=== PATIENT | male | born 1930 | race Caucasian/White ===

== ENCOUNTER 2016-10-29 18:50 | Emergency (ER) | payer MEDICARE, BC ==
[2016-10-29] MEDS ORDERED: ONDANSETRON HCL 4 MG/2 ML VIAL ONE (19:20)
[2016-10-29 19:55] LABS: BLOOD UREA NITROGEN 19 mg/dL (9-20); CALCIUM 10.3 mg/dL (8.4-10.2); CHLORIDE 100 mmol/L (98-107); CREATININE 0.8 mg/dL (0.7-1.3); GLUCOSE 98 mg/dL (70-100); SODIUM 136 mmol/L (137-145)
--- NOTE | 2016-10-29 21:26 | ER PHYSICIAN DOCUMENTATION ---
Physician Documentation [facility] Name:Sandro Garcia Age:86 yrs Sex:Male :1930 Arrival Date:10/29/2016 Time:18:50 Bed1 Private MD:Jorge L Baez EDivyTheodore Disposition: 10/29/16 20:30 Discharged to Home/Self Care. Impression: Vomiting - Dehydration. - Condition is Good. - Discharge Instructions: VOMITING (8y-Adult). - Prescriptions for Zofran 4 mg Oral Tablet - take 1-2 tablet by ORAL route every 4-6 hours As needed; 10 tablet. - Medical Reconciliation form form. - Follow up: Jorge L Baez MD; When: 4- 6 days; Reason: Continuance of care. - Problem is new. - Symptoms have improved. HPI: 10/29 21:36 This 86 yrs old Male presents to ER via Wheelchair with complaints of jm Nausea/Vomiting. 21:36 The patient presents to the emergency department with nausea, with vomiting, without jm any complaints of abdominal pain. Onset: The symptom(s)/episode began/occurred today. Possible causes: unknown. Severity of symptoms: in the emergency department the symptoms are unchanged. The patient has not experienced similar symptoms in the past. Historical: - Allergies: Levaquin; Indocin; - Home Meds: 1. Aspirin Oral 2. buproprion 3. Lisinopril Oral 4. Plavix Oral 5. Ranitidine Oral 6. atorvastatin oral 7. Carbidopa-Levodopa Oral - PMHx: CAD; PARKINSONS; hyperlipidemia; - PSHx: Hip surgery; stents; SHOULDER SURGERY; - Tetanus: < 10 years. - Ebola Screening: : Patient negative for fever greater than or equal to 101.5 degrees Fahrenheit, and additional compatible Ebola Virus Disease symptoms. Patient denies exposure to infectious person. Patient denies travel to an Ebola-affected area in the 21 days before illness onset. No symptoms or risks identified at this time. . - Immunization history: Pneumococcal vaccine is up to date, Flu Vaccine < 1 year. - Social history: Smoking status: Patient states was never smoker of tobacco. Patient/guardian denies using alcohol. ROS: 21:36 Constitutional: Negative for fatigue, fever. jm 21:36 Abdomen/GI: Positive for nausea, vomiting, Negative for abdominal pain, diarrhea, abdominal cramps. 21:36 Neuro: Positive for weakness, Negative for dizziness, near syncope. Exam: 21:36 Constitutional: The patient appears alert, awake. 21:36 Cardiovascular: Rate: normal, Rhythm: regular. 21:36 Abdomen/GI: Bowel sounds: normal, Palpation: abdomen is soft and non-tender. Vital Signs: 19:08 BP 158 / 89; Pulse 72; Resp 15; Temp 97.8; Pulse Ox 96% on R/A; Weight 64.86 kg; Height lb 5 ft. 9 in. (175.26 cm); Pain 0/10; 21:25 BP 131 / 78; Pulse 80; Resp 14; Pain 0/10; lb 19:08 Body Mass Index 21.12 (64.86 kg, 175.26 cm) lb MDM: 19:00 Differential diagnosis: viral gastroenteritis, gastroenteritis. Data reviewed: vital jm signs, nurses notes, old medical records, lab test result(s), and as a result, I will discharge patient. Counseling: I had a detailed discussion with the patient and/or guardian regarding: the historical points, exam findings, and any diagnostic results supporting the discharge/admit diagnosis. Response to treatment: the patient's symptoms have resolved after treatment. ED course: Pt MUCH better after 2LNS and zofran. . 19:35 Patient medically screened. 10/29 19:56 Order name: BASIC METABOLIC PANEL; Complete Time: 20:03 EDOH 10/29 19:24 Order name: Iv Saline Lock; Complete Time: 19:24 lb Dispensed Medications: Completed: NS 0.9% 1000 ml IV at bolus once 19:24 Drug: NS 0.9% 1000 ml; Route: IV; Rate: bolus; Site: right forearm; lb 19:24 Drug: Zofran 4 mg; Route: IVP; Infused Over: 2 mins; Site: right forearm; lb 19:53 Follow up: Response: Nausea is decreased lb 19:53 CANCELLED (Duplicate Order): Zofran 4 mg IVP once over 2 mins lb 20:16 Drug: NS 0.9% 1000 ml; Route: IV; Rate: bolus; Site: right forearm; lb 20:16 Drug: NS 0.9% 1000 ml; Route: IV; Rate: bolus; Site: right forearm; lb 21:27 Follow up: IV Status: Completed infusion lb 21:24 Drug: Zofran 1 tablet; Route: PO; lb 21:24 Follow up: Response: Pharmacy closed - take home med pack lb Signatures: Theodore Quinones MD MD jm Bollock, Lynda lb
--- NOTE | 2016-10-29 21:26 | ER NURSING DOCUMENTATION ---
Nurse's Notes [facility] Name:Sandro Garcia Age:86 yrs Sex:Male :1930 Arrival Date:10/29/2016 Time:18:50 Bed1 Private MD:Jorge L Baez Diagnosis:Vomiting - Dehydration Presentation: 10/29 19:02 Presenting complaint: Patient states: nausea since yesterday, today vomited x 4. denies lb fever or diarrhea, denies pain. Transition of care: Home. Notified ED Physician of Joni Walsh notified. Care prior to arrival: None. 19:02 Acuity: PIPPA 3 lb 19:02 Method Of Arrival: Wheelchair lb Triage Assessment: 19:07 General: Appears uncomfortable, Behavior is appropriate for age, cooperative, pleasant. lb Pain: Denies pain. GI: Reports nausea, vomiting, since yesterday. Historical: - Allergies: Levaquin; Indocin; - Home Meds: 1. Aspirin Oral 2. buproprion 3. Lisinopril Oral 4. Plavix Oral 5. Ranitidine Oral 6. atorvastatin oral 7. Carbidopa-Levodopa Oral - PMHx: CAD; PARKINSONS; hyperlipidemia; - PSHx: Hip surgery; stents; SHOULDER SURGERY; - Tetanus: < 10 years. - Ebola Screening: : Patient negative for fever greater than or equal to 101.5 degrees Fahrenheit, and additional compatible Ebola Virus Disease symptoms. Patient denies exposure to infectious person. Patient denies travel to an Ebola-affected area in the 21 days before illness onset. No symptoms or risks identified at this time. . - Immunization history: Pneumococcal vaccine is up to date, Flu Vaccine < 1 year. - Social history: Smoking status: Patient states was never smoker of tobacco. Patient/guardian denies using alcohol. Screenin:09 Infectious Disease Risk None. Abuse screen: Denies threats or abuse. Denies injuries lb from another. Nutritional screening: No deficits noted. Assessment: 19:09 See Triage Assessment done by same RN. GI: Abdomen is flat, non- distended Bowel sounds lb present X 4 quads. Vital Signs: 19:08 BP 158 / 89; Pulse 72; Resp 15; Temp 97.8; Pulse Ox 96% on R/A; Weight 64.86 kg; Height lb 5 ft. 9 in. (175.26 cm); Pain 0/10; 21:25 BP 131 / 78; Pulse 80; Resp 14; Pain 0/10; lb 19:08 Body Mass Index 21.12 (64.86 kg, 175.26 cm) lb ED Course: 18:52 Patient arrived in ED. ma1 18:52 Jorge L Baez MD is Private Physician. ma1 19:02 Kaitlynn Billings is Primary Nurse. lb 19:03 Triage completed. lb 19:09 Valuables Remains with patient Patient has correct armband on for positive lb identification. Placed in gown. Bed in low position. Side rails up X 1. 19:20 Theodore Quinones MD is Attending Physician. 19:24 Inserted peripheral IV: 22 gauge in right forearm and blood collected. lb 20:29 Jorge L Baez MD is Referral Physician. Administered Medications: Completed: NS 0.9% 1000 ml IV at bolus once 19:24 Drug: NS 0.9% 1000 ml; Route: IV; Rate: bolus; Site: right forearm; lb 19:24 Drug: Zofran 4 mg; Route: IVP; Infused Over: 2 mins; Site: right forearm; lb 19:53 Follow up: Response: Nausea is decreased lb 19:53 CANCELLED (Duplicate Order): Zofran 4 mg IVP once over 2 mins lb 20:16 Drug: NS 0.9% 1000 ml; Route: IV; Rate: bolus; Site: right forearm; lb 20:16 Drug: NS 0.9% 1000 ml; Route: IV; Rate: bolus; Site: right forearm; lb 21:27 Follow up: IV Status: Completed infusion lb 21:24 Drug: Zofran 1 tablet; Route: PO; lb 21:24 Follow up: Response: Pharmacy closed - take home med pack lb Intake: 21:25 IV: 1800ml (NS); Total: 1800ml. lb Outcome: 20:30 Discharge ordered by . ade 21:25 Discharged to home ambulatory. lb 21:25 Condition: stable 21:25 Discharge Assessment: Patient awake, alert and oriented x 3. No cognitive and/or functional deficits noted. Patient verbalized understanding of disposition instructions. 21:25 Instructed on discharge instructions, follow up and referral plans. 21:25 IV D/Vitaly 21:26 Patient left the ED. lb 10/30 09:12 Discharge F/U Call: Unable to reach: no answer st Signatures: Ct Del Valle, RN Theodore Junior MD MD jm Bollock, Lynda lb Addison, Melissa ma1
[2016-10-29] MEDS ORDERED: ONDANSETRON ODT PREPAC 4 MG TAB.RAPDIS PO ONE (21:28)
== END 2016-10-29 21:26 | disposition home or self-care (01) ==
LOC: ER 18:50
DX: E86.0 Dehydration (principal); R11.2 Nausea with vomiting, unspecified; R53.1 Weakness; I25.10 Atherosclerotic heart disease of native coronary artery without angina pectoris; G20 Parkinson's disease; Z79.899 Other long term (current) drug therapy; Z79.82 Long term (current) use of aspirin
CPT/HCPCS: 80048; 96361; 96374; 99283; J2405

== ENCOUNTER 2016-12-25 08:04 | Day surgery (SDC) | payer MEDICARE ==
[2016-12-25] MEDS ORDERED: METHYLPREDNISOLONE ACETATE 40 MG/ML VIAL ONE (08:27)
[2016-12-25] MEDS ORDERED: IOHEXOL 240 MG/ML 50 ML VIAL IV ONE (08:27)
[2016-12-25] MEDS ORDERED: BUPIVACAINE HCL/PF 0.25% 30 ML VIAL ONE ×2 (08:28)
[2016-12-25] MEDS ORDERED: NORMAL SALINE FLUSH 10 ML ONE (08:55)
--- NOTE | 2016-12-25 15:32 | PROCEDURE NOTE ---
DATE OF PROCEDURE: 12/25/16 SURGEON: David Narayanan MD INDICATION FOR PROCEDURE: Patient is an 86-year-old male with chronic lumbosacral pain, spinal stenosis and degenerative disk disease, here for a caudal epidural steroid injection today. PROCEDURE PERFORMED: Caudal epidural steroid injection. No sedation was used. SUMMARY: Prior to proceeding, history and physical was performed in an informed consent was obtained after his questions were answered. An IV buff cap was placed for precaution. He was brought to the procedure room and placed in the prone position where the lumbosacral spine was prepped and draped in the usual sterile fashion. The sacral cornua was identified and the overlying skin anesthetized with 1% Lidocaine. Next a 22-gauge 3-1/2 inch spinal needle was inserted into the sacral hiatus. This was confirmed under lateral fluoroscopic view. Then 1 mL of contrast dye was then injected indicating epidural placement. Next, an AP was taken to confirm epidural placement. After negative aspiration for blood or cerebrospinal fluid a total of 15 mL was injected containing 80 mg of Depo-Medrol, 3 mL of 0.25% Marcaine and 10 mL of sterile normal saline. He tolerated the procedure without any complications, and was discharged home with follow up. ELANA
== END 2016-12-25 09:30 | disposition home or self-care (01) ==
LOC: SDS 08:04
PROVIDERS: ATTEND Pain Medicine Pain Medicine
DX: M99.43 Connective tissue stenosis of neural canal of lumbar region (principal); I50.9 Heart failure, unspecified; I11.0 Hypertensive heart disease with heart failure; G89.29 Other chronic pain; Z79.899 Other long term (current) drug therapy
CPT/HCPCS: 76000; S0020

== ENCOUNTER 2017-01-13 05:19 | Emergency (ER) | payer MEDICARE ==
[2017-01-13 05:55] LABS: BASOPHIL# 0.1 X 10^3uL (0.0-0.1); BASOPHILS 0.7 % (0.0-2.0); EOSINOPHILS# 0.3 X 10^3uL (0.0-0.4); HEMATOCRIT 45.4 % (42.0-54.0); HEMOGLOBIN 15.3 g/dL (14.0-18.0); LYMPHOCYTES 9.7 % (20.0-40.0); LYMPHOCYTES# 1.2 X 10^3uL (0.8-3.8); MEAN CELL VOLUME 92.2 fL (80.0-100.0); MEAN CORPUS. HGB CONCENTRATION 33.7 g/dL (32.0-36.0); MEAN PLATELET VOLUME 7.7 fL (7.4-10.4); MONOCYTES 12.2 % (2.0-10.0); MONOCYTES# 1.6 X 10^3uL (0.2-1.0); NEUTROPHILS 75.4 % (54.0-75.0); NEUTROPHILS# 9.5 X 10^3uL (2.6-6.7); PLATELET COUNT 306 X 10^3uL (130-440); RED BLOOD COUNT 4.93 X 10^6uL (4.20-6.10); WHITE BLOOD COUNT 12.7 X 10^3uL (3.9-10.7)
[2017-01-13 05:59] LABS: BLOOD UREA NITROGEN 23 mg/dL (9-20); CALCIUM 9.4 mg/dL (8.4-10.2); CHLORIDE 104 mmol/L (98-107); CREATININE 0.9 mg/dL (0.7-1.3); GLUCOSE 104 mg/dL (70-100); POTASSIUM 3.9 mmol/L (3.5-5.1); SODIUM 141 mmol/L (137-145)
[2017-01-13] MEDS ORDERED: NITROGLYCERIN 0.4 MG TAB.SUBL SUBLINGUAL ONE (06:06)
[2017-01-13] MEDS ORDERED: ONDANSETRON HCL 4 MG/2 ML VIAL ONE (06:07)
[2017-01-13] MEDS ORDERED: MORPHINE SULFATE 4 MG/ML SYR ONE (06:07)
[2017-01-13 06:25] LABS: TROPONIN I < 0.012 ng/mL (0.00-0.034)
[2017-01-13] MEDS ORDERED: MORPHINE SULFATE 2 MG/ML SYR ONE (08:48)
--- NOTE | 2017-01-13 09:49 | CT REPORT ---
HISTORY: Chest pain and elevated d-dimer. COMPARISON: None. TECHNIQUE: This examination was performed using automated exposure control, adjustment of mA or kV according to patient size, and/or use of iterative reconstruction technique. Axial CT imaging from the thoracic i nlet through the upper abdomen following administration of IV contrast during peak opacification of t he pulmonary arteries, multiplanar reformatted and 3-D images are evaluated. 100cc Isovue 300 contrast. FINDINGS: Contrast injection is satisfactory for evaluation of the segmental pulmonary arteries. No filling def ect is evident. The main pulmonary artery is normal in size. Subcentimeter hypoattenuating nodules are incidentally noted within the thyroid bilaterally. Mild subsegmental atelectasis in the lower lobes is evident bilaterally. A 2 mm calcified nodule with in the superior segment of the left lower lobe is present. Triangular 4 mm nodule within the right ob lique fissure likely represents a lymph node. Patchy nonconsolidative opacities within the left lower lobe are favored to represent atelectasis. Tiny locules of gas within the left costophrenic sulcus are noted. These are best illustrated on sagi ttal image 37). Cardiac structures and great vessels are unremarkable. There is no pathologic mediastinal or hilar ad enopathy. There is no focal bone lesion. Limited evaluation of the upper abdomen demonstrates no acute abnormality. There is incidentally note d 10 mm hypoattenuating nodule within segment 4 of the liver. Descending aorta, aortic arch, descending thoracic aorta widely patent, visualized portions of the in nominate artery, left and right subclavian, left and right vertebral, and left and right common carot id arteries patent, no aneurysm, dissection, or flow limiting stenosis. IMPRESSION: 1. Negative evaluation for acute pulmonary embolism. 2. Left basilar opacities representing atelectasis versus infiltrate. 3. Tiny gas locules within the left costophrenic sulcus may represent trace pneumothorax versus subpl eural blebs. 4. Hypoattenuating nodules in the thyroid bilaterally. Dedicated thyroid ultrasound is recommended. Results were discussed with Dr. Calvo via phone on 01/13/2017 9:[address] Pfeiffer. Final Electronic Signature: This report was electronically signed by Nadeem Pfeiffer MD on 01/13/2017 9:4 7 AM. dwells /
[2017-01-13] MEDS ORDERED: KETOROLAC TROMETHAMINE 30 MG/ML VIAL ONE (10:15)
--- NOTE | 2017-01-13 11:05 | ER NURSING DOCUMENTATION ---
Nurse's Notes [facility] Name:Sandro Garcia Age:86 yrs Sex:Male :1930 Arrival Date:01/13/2017 Time:05:19 BedTrauma-C Private MD:Jorge L Baez Diagnosis:Pleurisy Presentation: 01/13 05:22 Acuity: PIPPA 2 rh 05:38 Presenting complaint: Patient states: Pt states he woke up with "shoulder pain" that rh feels like pain when he had his stent placed. Pt states it is constant and located on the left lateral chest, pain is reproducible to touch as well. pt denies nausea, dizziness and SOB. Transition of care: Home. 05:38 Method Of Arrival: Private Vehicle Triage Assessment: 05:39 General: Appears in no apparent distress, Behavior is cooperative. Pain: Complains of rh pain in anterior aspect of left upper chest Pain began 2 hours ago Is continuous Aggravated by Deep inspiration. EENT: Oral mucosa is dry. Neuro: Level of Consciousness is awake, alert, obeys commands, Oriented to person, place, time, event. Cardiovascular: Capillary refill < 3 seconds Chest pain is located in left anterior chest wall. Respiratory: Airway is patent Respiratory effort is even, unlabored, Respiratory pattern is regular, symmetrical, Denies shortness of breath. GI: Abdomen is non- distended Denies diarrhea, nausea, vomiting. : No deficits noted. Derm: Skin is intact, is fragile, Skin is pink, warm & dry. Historical: - Allergies: Celexa; Gemfibrozil; Levaquin; baycol; Indocin; - Home Meds: 1. atorvastatin 40 mg oral tab 1 tab once daily 2. Zofran 4 mg oral tab 1 tab every 12 hours 3. Miralax 17 gram oral pwpk 1 packet once daily 4. Metamucil Smooth Texture oral pack 5. acetaminophen 500 mg oral cap 2 caps DAILY 6. aspirin 81 mg oral tab 1 tab once daily 7. docusate sodium 100 mg oral cap 1 cap once daily 8. fentanyl 12 mcg/hr transdermal pt72 1 patch every 72 hours 9. ranitidine HCl 150 mg oral cap 1 cap once daily at bedtime 10. Tramadol Oral 11. carbidopa-levodopa 25-100 mg oral tab 1 tab Daily 12. lisinopril 10 mg oral tab 1 tab once daily 13. bupropion HCl 100 mg oral tab 1 tab 2 times per day 14. clopidogrel 75 mg oral tab 1 tab once daily - PMHx: PARKINSONS; CHRONIC NAUSEA; BPH; GOUT; CHRONIC PAIN; CONSTIPATION; IBS; PUD; ESOHAGEAL STENOSIS; GERD; CAD; Hypertension; TIA; DEPRESSION; DEMENTIA; HYPERLIPIDEMIA; LYME DISEASE ; - PSHx: HIP SURGERY; Knee surgery; TURP; LIH; - Tetanus: < 10 years. - Ebola Screening: : Patient negative for fever greater than or equal to 101.5 degrees Fahrenheit, and additional compatible Ebola Virus Disease symptoms. - Immunization history: Pneumococcal vaccine is up to date, Flu Vaccine < 1 year. - Social history: Smoking status: Patient states was never smoker of tobacco. Screenin:37 Infectious Disease Risk None. Abuse screen: Denies threats or abuse. Denies injuries rh from another. Nutritional screening: No deficits noted. Assessment: 05:41 See Triage Assessment done by same RN. rh 09:04 General: Appears in no apparent distress, Behavior is appropriate for age. Pain: lp Complains of pain in left clavicle, anterior aspect of left upper chest and left breast Pain does not radiate. Pain currently is 5 out of 10 on a pain scale. Quality of pain is described as sharp, Alleviated by medications, rest, Aggravated by inspiration. Neuro: Level of Consciousness is awake, alert, Oriented to person, place, time, event. EENT: No deficits noted. very [place]. Cardiovascular: Heart tones S1 S2. Respiratory: Breath sounds are clear bilaterally. GI: Bowel sounds present X 4 quads. : No deficits noted. Derm: No deficits noted. Vital Signs: 05:30 BP 160 / 106; Pulse 75; Resp 19; Temp 98.5(TE); Pulse Ox 95% on R/A; rh 06:00 BP 150 / 96; Pulse 82; Resp 20; Pulse Ox 96% on 2 lpm NC; Pain 7/10; rh 06:31 BP 120 / 89; Pulse 79; Resp 18; Pulse Ox 95% on 2 lpm NC; rh 06:45 BP 130 / 85; Pulse 76; Resp 16; Pulse Ox 93% on 2 lpm NC; lp 07:45 BP 145 / 95 (auto/); Pulse Ox R/A; lp 07:49 Pulse 72 MON; Resp 29; Pulse Ox 98% on R/A; lp 08:00 BP 151 / 106 (auto/); Pulse Ox R/A; lp 08:04 Pulse 77 MON; Resp 23; Pulse Ox R/A; lp 08:15 BP 154 / 97 (auto/); Pulse Ox R/A; lp 08:19 Pulse 77 MON; Resp 24; Pulse Ox R/A; lp 08:30 BP 149 / 98 (auto/); Pulse Ox R/A; lp 08:34 Pulse 76 MON; Resp 32; Pulse Ox R/A; lp 08:41 Pain 8/10; lp 09:07 Pain 5/10; lp 09:37 BP 149 / 93 (auto/); lp 09:44 Pulse 73 MON; Resp 28; Pulse Ox 97% ; lp 10:05 Pain 5/10; lp 10:43 BP 139 / 90; Pulse 72; Resp 16; Pulse Ox 92% on R/A; lp 08:41 Order for Morphine recieved lp 09:07 pain improved lp ED Course: 05:20 Patient arrived in ED. em2 05:21 Jorge L Baez MD is Private Physician. em2 05:22 Aisha Barahona is Primary Nurse. rh 05:22 Triage completed. rh 05:25 truck washer on. Pulse ox on. NIBP on. rh 05:25 Notified ED Physician of patient's arrival and chief complaint. Dr. Calvo notified. rh 05:28 EKG done. (by ED staff). Reviewed by Zhen Calvo MD. rh 05:30 Inserted peripheral IV: 20 gauge in right antecubital area and blood collected. rh 05:35 Port Xray Completed. ms 05:37 Valuables Remains with patient Patient has correct armband on for positive rh identification. Placed in gown. Bed in low position. Call light in reach. Side rails up X 1. 05:49 Zhen Calvo MD is Attending Physician. tl1 06:00 Oxygen Oxygen administration via nasal cannula @ 2L/min. rh 07:12 EKG attached rh 07:13 Report given to ALAINA OLIVARES. rh 09:[address] ms 09:34 CAT SCAN; CHEST ANGIO [id number] Sent. ms 10:34 Jorge L Baez MD is Referral Physician. tl1 Administered Medications: 05:56 Drug: Aspirin 81 mg; Route: PO; rh 06:16 Follow up: Response: No adverse reaction rh 05:58 Drug: Zofran 4 mg; Route: IVP; Infused Over: 2 mins; Site: right antecubital; rh 06:16 Follow up: Response: Nausea is decreased rh 06:00 Drug: morphine 4 mg; Route: IVP; Site: right antecubital; rh 06:16 Follow up: Response: Pain is decreased rh 06:04 Drug: Nitroglycerin 0.4 mg; Route: Sublingual; rh 06:17 Follow up: Response: Blood pressure is lowered rh 08:41 Drug: morphine 2 mg; Route: IVP; Infused Over: 2 mins; Site: right antecubital; lp 09:06 Follow up: Response: Pain is decreased lp 10:07 Drug: ketorolac 15 mg; Route: IVP; Infused Over: 3 mins; Site: right antecubital; lp 11:00 Follow up: Response: Pain is decreased lp Outcome: 10:34 Discharge ordered by MD. oleary 11:04 Discharged to home ambulatory. lp 11:04 Condition: stable 11:04 Instructed on discharge instructions, follow up and referral plans. medication usage. 11:04 Patient left the ED. lp Signatures: Alaina Morton RN RN lp Strickland, Mary ms Meinking-reg, Ellen-reg 2 Zhen Calvo MD MD 1 Aisha Barahona
--- NOTE | 2017-01-13 11:05 | ER PHYSICIAN DOCUMENTATION ---
Physician Documentation [facility] Name:Sandro Garcia Age:86 yrs Sex:Male :1930 Arrival Date:01/13/2017 Time:05:19 BedTrauma-C Private MD:oJrge L Baez EDjoviZhen Disposition: 01/13 06:15 Critical Care: not applicable. tl1 16:12 Chart complete. tl1 Disposition: 01/13/17 10:34 Discharged to Home/Self Care. Impression: Pleurisy. - Condition is Good. - Discharge Instructions: PLEURISY. - Medical Reconciliation form form. - Follow up: Jorge L Baez MD; When: Tomorrow; Reason: Recheck today's complaints. - Problem is new. - Symptoms have improved. - Notes: OK to take ibuprofen, 400 mg 3 times a day for this chest wall pain.. Call today to make an appointment to see Dr Baez tomorrow. Return here for fever, trouble breathing or if worse in any way. HPI: 05:49 This 86 yrs old Male presents to ER via Private Vehicle with complaints of tl1 Pain - LEFT upper chest. 05:49 The patient or guardian reports chest pain that is located primarily in the anterior tl1 chest wall, left upper pectoral area. Onset: suddenly, this morning, 1.5 hour(s) ago, at 04:00. The pain radiates to the left shoulder, left neck. There has been no movement of pain. Associated signs and symptoms: Pertinent positives: shortness of breath, Pertinent negatives: abdominal pain, cough, diaphoresis, dizziness, headache, lower extremity pain, lower extremity swelling, lightheadedness, nausea, near syncope, palpitations. The chest pain is described as a pressure, sharp. Duration: The patient or guardian reports a single episode, that is now resolved. Modifying factors: The symptoms are alleviated by remaining still, the symptoms are aggravated by breathing, palpation of area. Severity of pain: At its worst the pain was moderate a 7 / 10. Risk factors for coronary artery disease include: This patient has known coronary artery disease. Historical: - Allergies: Celexa; Gemfibrozil; Levaquin; baycol; Indocin; - Home Meds: 1. atorvastatin 40 mg oral tab 1 tab once daily 2. Zofran 4 mg oral tab 1 tab every 12 hours 3. Miralax 17 gram oral pwpk 1 packet once daily 4. Metamucil Smooth Texture oral pack 5. acetaminophen 500 mg oral cap 2 caps DAILY 6. aspirin 81 mg oral tab 1 tab once daily 7. docusate sodium 100 mg oral cap 1 cap once daily 8. fentanyl 12 mcg/hr transdermal pt72 1 patch every 72 hours 9. ranitidine HCl 150 mg oral cap 1 cap once daily at bedtime 10. Tramadol Oral 11. carbidopa-levodopa 25-100 mg oral tab 1 tab Daily 12. lisinopril 10 mg oral tab 1 tab once daily 13. bupropion HCl 100 mg oral tab 1 tab 2 times per day 14. clopidogrel 75 mg oral tab 1 tab once daily - PMHx: PARKINSONS; CHRONIC NAUSEA; BPH; GOUT; CHRONIC PAIN; CONSTIPATION; IBS; PUD; ESOHAGEAL STENOSIS; GERD; CAD; Hypertension; TIA; DEPRESSION; DEMENTIA; HYPERLIPIDEMIA; LYME DISEASE ; - PSHx: HIP SURGERY; Knee surgery; TURP; LIH; - Tetanus: < 10 years. - Ebola Screening: : Patient negative for fever greater than or equal to 101.5 degrees Fahrenheit, and additional compatible Ebola Virus Disease symptoms. - Immunization history: Pneumococcal vaccine is up to date, Flu Vaccine < 1 year. - Social history: Smoking status: Patient states was never smoker of tobacco. ROS: 05:53 Cardiovascular: Positive for chest pain. tl1 05:53 All other systems are negative. Exam: 05:53 Constitutional: This is a well developed, well nourished patient who is awake, alert, tl1 and in no acute distress. Head/Face: Normocephalic, atraumatic. Eyes: Pupils equal round and reactive to light, extra-ocular motions intact. Lids and lashes normal. Conjunctiva and sclera are non-icteric and not injected. Cornea within normal limits. Periorbital areas with no swelling, redness, or edema. ENT: Nares patent. No nasal discharge, no septal abnormalities noted. Tympanic membranes are normal and external auditory canals are clear. Oropharynx with no redness, swelling, or masses, exudates, or evidence of obstruction, uvula midline. Mucous membranes moist. 05:53 Neck: Trachea midline, no thyromegaly or masses palpated, and no cervical tl1 lymphadenopathy. Supple, full range of motion without nuchal rigidity, or vertebral point tenderness. No Meningismus. 05:53 Chest/axilla: Inspection: normal, Palpation: tenderness, that is moderate, of the anterior aspect of left upper chest, and later in the ED course, the lower left anterior chest.. 05:53 Cardiovascular: Rate: normal, Rhythm: regular, Pulses: no pulse deficits are appreciated, Heart sounds: normal, Edema: is not appreciated, JVD: is not appreciated. 05:53 Respiratory: Respirations: normal, Breath sounds: are normal, no rales, rhonchi, no stridor, no wheezing. 05:53 Abdomen/GI: Inspection: abdomen appears normal, Palpation: abdomen is soft and non-tender. 05:53 Back: CVA tenderness, is absent, vertebral tenderness, is not appreciated. 05:53 Musculoskeletal/extremity: Exam is negative for 05:53 Skin: Exam negative for rash. 05:53 Neuro: Exam negative for acute changes. Vital Signs: 05:30 BP 160 / 106; Pulse 75; Resp 19; Temp 98.5(TE); Pulse Ox 95% on R/A; rh 06:00 BP 150 / 96; Pulse 82; Resp 20; Pulse Ox 96% on 2 lpm NC; Pain 7/10; rh 06:31 BP 120 / 89; Pulse 79; Resp 18; Pulse Ox 95% on 2 lpm NC; rh 06:45 BP 130 / 85; Pulse 76; Resp 16; Pulse Ox 93% on 2 lpm NC; lp 07:45 BP 145 / 95 (auto/); Pulse Ox R/A; lp 07:49 Pulse 72 MON; Resp 29; Pulse Ox 98% on R/A; lp 08:00 BP 151 / 106 (auto/); Pulse Ox R/A; lp 08:04 Pulse 77 MON; Resp 23; Pulse Ox R/A; lp 08:15 BP 154 / 97 (auto/); Pulse Ox R/A; lp 08:19 Pulse 77 MON; Resp 24; Pulse Ox R/A; lp 08:30 BP 149 / 98 (auto/); Pulse Ox R/A; lp 08:34 Pulse 76 MON; Resp 32; Pulse Ox R/A; lp 08:41 Pain 8/10; lp 09:07 Pain 5/10; lp 09:37 BP 149 / 93 (auto/); lp 09:44 Pulse 73 MON; Resp 28; Pulse Ox 97% ; lp 10:05 Pain 5/10; lp 10:43 BP 139 / 90; Pulse 72; Resp 16; Pulse Ox 92% on R/A; lp 08:41 Order for Morphine recieved lp 09:07 pain improved lp MDM: 05:28 Data interpreted: telemetry monitor: rate is 73 beats/min, rhythm is normal sinus rhythm, tl1 Pulse oximetry: on room air is 95 %. Arterial blood gas:. Test interpretation: by ED physician or midlevel provider: plain radiologic studies, ECG. 05:49 Patient medically screened. tl1 05:57 Patient took aspirin within the past 24 hours. The patient's pulmonary embolism risk tl1 score was calculated as follows: No Risks (0 Pts). PRECIOUS Risk Score: 1 - patient's age is greater or equal to 65 years, 1- Known CAD, 1 - ASA use in past 7 days, TOTAL SCORE = 3. Data reviewed: vital signs, nurses notes, EMS record, old medical records, lab test result(s), EKG, radiologic studies, plain films. ECG:. 06:14 ED course: CXR showed patchy interstitial areas, R>L. No change from 03/07/16. tl1 07:12 EKG attached rh 16:05 Data reviewed: and as a result, I will discharge patient. ED course: I spoke with Dr mamta Baez. He is happy to see the patient in clinic tomorrow. I don't think Mr Garcia has pneumonia now, but he needs close follow up, given the subtle findings on his CT scan. I do not think he needs admission at this time. He is asymptomatic , after Toradol, and safe for d/c to home. He lives close by and can return quickly in the event of problems.. 01/13 06:01 Order name: CBC AUTO DIF, MDIF/RMOR IF IND; Complete Time: 13:39 EDMS 01/13 09:30 Order name: TROPONIN I; Complete Time: 13:39 EDNH 01/13 09:23 Order name: CAT SCAN; CHEST ANGIO [id number] EDNH 01/13 09:51 Order name: CAT SCAN; CHEST ANGIO [id number]; Complete Time: 13:39 EDNH 01/13 12:31 Order name: CHEST; SINGLE VIEW [id number]; Complete Time: 13:39 EDMS 01/13 05:24 Order name: 12-lead EKG; Complete Time: 05:37 rh 01/13 05:24 Order name: Iv Saline Lock; Complete Time: 05:37 rh 01/13 05:24 Order name: Place Patient On Monitor; Complete Time: 05:25 rh 01/13 05:24 Order name: Pulse Ox Continuous; Complete Time: 05: rh 01/13 06:13 Order name: Oxygen; Complete Time: 06:13 EC:28 Rate is 73 beats/min. Rhythm is regular, Normal Sinus Rhythm. QRS [place] is Normal. Left tl1 axis deviation noted. QRS is negative in leads II, III, aVF, aVR, V1, V3, V4. ME interval is normal at 207 msec. QRS interval is normal at 91 msec. QT interval is normal at 408 msec. Q waves are Present in leads aVR, V1, V3. T waves are Normal. No ST changes noted. Clinical impression: NSR, LAD, OLD ASMI. Dispensed Medications: 05:56 Drug: Aspirin 81 mg; Route: PO; rh 06:16 Follow up: Response: No adverse reaction rh 05:58 Drug: Zofran 4 mg; Route: IVP; Infused Over: 2 mins; Site: right antecubital; rh 06:16 Follow up: Response: Nausea is decreased rh 06:00 Drug: morphine 4 mg; Route: IVP; Site: right antecubital; rh 06:16 Follow up: Response: Pain is decreased rh 06:04 Drug: Nitroglycerin 0.4 mg; Route: Sublingual; rh 06:17 Follow up: Response: Blood pressure is lowered rh 08:41 Drug: morphine 2 mg; Route: IVP; Infused Over: 2 mins; Site: right antecubital; lp 09:06 Follow up: Response: Pain is decreased lp 10:07 Drug: ketorolac 15 mg; Route: IVP; Infused Over: 3 mins; Site: right antecubital; lp 11:00 Follow up: Response: Pain is decreased lp Signatures: Dispatcher [employer] EDAlaina Wayne RN RN lp Leigh, Tom, MD MD tl1 Aisha Barahona
--- NOTE | 2017-01-13 12:23 | RADIOLOGY REPORT ---
A limited single portable view of the chest is compared with prior film dated . The heart, vessels and lungs are stable and unremarkable. No infiltrate, fluid or pneumothorax is seen. IMPRESSION: No acute cardiopulmonary abnormality is identified. Please see CT scan report from the same date. MTDD
== END 2017-01-13 11:04 | disposition home or self-care (01) ==
LOC: ER 05:19
DX: R09.1 Pleurisy (principal); R06.02 Shortness of breath; R91.8 Other nonspecific abnormal finding of lung field; I25.10 Atherosclerotic heart disease of native coronary artery without angina pectoris; I10 Essential (primary) hypertension; G20 Parkinson's disease; Z79.82 Long term (current) use of aspirin; Z79.899 Other long term (current) drug therapy
CPT/HCPCS: 36415; 71010; 71275; 80048; 83735; 83880; 84484; 85025; 85379; 85610; 93005; 96374; 96375; 96376; 99285; J1885; J2270; J2405